=== PATIENT | male | born 1955 | race Caucasian/White ===

== ENCOUNTER → 2020-12-10 10:05 | Outpatient (CLI) | payer OTHER, SELFPAY ==
--- NOTE | ~2020-12-10 | XR_ITS ---
EXAMINATION: XR UGIAC wo kub EXAM DATE: 12/10/2020 10:51 INDICATION: Right upper quadrant pain. Patient reports having normal right upper quadrant ultrasound on Tuesday. TECHNIQUE: Standard single and double contrast barium upper GI examination was performed by radiolog ist Milo Youngblood M.D. Pulsed dose reduction fluoroscopy was used with fluoroscopic time of 0.7 minut es The DAP for this procedure was 2.6 Gycm2. A total of 107 images obtained for the exam. There i s no prior study for comparison. FINDINGS: Upper portion of esophagus demonstrates a small diverticulum projecting posteriorly, probab ly Zenker's diverticulum which did demonstrate rapid clearance. There is no esophageal stricture or m ass identified. There is small to moderate-sized gastroesophageal hiatal hernia which predisposes cornelius alvarenga to have reflux, but no reflux was demonstrated during this exam. The stomach has a normal appearance without evidence of mass lesion, ulceration or filling defect. T here is normal rugal fold pattern. The duodenum and duodenal sweep are normal in appearance. IMPRESSION: 1. Small to moderate sliding sized gastroesophageal hiatal hernia. 2. Small Zenker's diverticulum. 3. Unremarkable stomach, duodenal sweep. Reviewed, dictated and finalized at location B.
== END ==
DX: R10.11 Right upper quadrant pain (principal); K44.9 Diaphragmatic hernia without obstruction or gangrene; K22.5 Diverticulum of esophagus, acquired
CPT/HCPCS: 74246

== ENCOUNTER 2023-11-17 02:25 | Day surgery (SDC) | payer MEDICARE, SELFPAY ==
[2023-10-27 10:23] VITALS: BMI 30.5
[2023-11-17 06:20] VITALS: BP 147/95; PULSE 65; RESP 18; TEMP 36.1; O2SAT 100
[2023-11-17] MEDS: LACTATED RINGERS 1,000 ML 150 ML IV CONT (06:31)
--- NOTE | 2023-11-17 07:19 | WPDANESEPPF ---
Anes - Initial Pre Proc Eval Procedure: Operation Date: 11/17/23 07:30 Proposed Procedures p Esophagogastroduodenoscopy - Trav Eason MD Date/Time: 11/17/23 07:19 Surgeon: Trav Eason MD Pre Op Diagnosis: RUQ pain Patient Data Age: 67 Gender: M Height: 1.83 m Weight: 102.6 kg Last Vital Signs Temp 97 F L 11/17/23 06:20 Pulse 65 11/17/23 06:20 Resp 18 11/17/23 06:20 BP 147/95 H 11/17/23 06:20 Pulse Ox 100 11/17/23 06:20 O2 Del Method Room Air 11/17/23 06:20 Allergies Allergy/AdvReac Type Severity Reaction Status Date / Time No Known Allergies Allergy Verified 11/17/23 06:19 Home Medications Medication Instructions Recorded Confirmed Type No Home Medications 10/27/23 11/17/23 History Patient hx anesthesia problems: none Family hx anesthesia problems: none Results Review: All pre-operative results and documents have been reviewed as part of the pre-operative evaluation. COUNTS INCLUDE 234 BEDS AT THE [facility] Social History Social History Smoking status: Never smoker Alcohol intake: current Drinks per week: 4 Substance use: current Substance use type: other Other substance usage details: THC gummy Last use: 2x week Living arrangements: with family Spiritual care concerns: No Anes - Eval Final PreProcedure Day of Procedure 11/17/23 07:19 Patient weight: obese Heart: regular rate and rhythm Lungs: clear to auscultation Airway: Mallampati scale class II Neurological: alert and oriented Last oral intake: >/= 8 hours ASA classification: II Emergent: no Anesthetic plan: proceed Anesthesia type and monitoring: general GIVS and standard monitoring Results Review: All pre-operative results and documents have been reviewed as part of the pre-operative evaluation. Hx of palpitations, nilson when laying on his L side. Holter monitor pending. Pt reports he can walk 1-2 fos, no cp or sob. Informed Consent: The patient's anesthetic plan and its attendant risks and benefits were discussed with the patient/family/POA. Questions were solicited and answers provided to the satisfaction of the patient/family/POA.
--- NOTE | 2023-11-17 07:21 | WPDANESEPPF ---
Anes - Initial Pre Proc Eval Procedure: Operation Date: 11/17/23 07:30 Proposed Procedures p Esophagogastroduodenoscopy - Trav Eason MD Date/Time: 11/17/23 07:21 Surgeon: Trav Eason MD Pre Op Diagnosis: RUQ pain Patient Data Age: 67 Gender: M Height: 1.83 m Weight: 102.6 kg Last Vital Signs Temp 97 F L 11/17/23 06:20 Pulse 65 11/17/23 06:20 Resp 18 11/17/23 06:20 BP 147/95 H 11/17/23 06:20 Pulse Ox 100 11/17/23 06:20 O2 Del Method Room Air 11/17/23 06:20 Allergies Allergy/AdvReac Type Severity Reaction Status Date / Time No Known Allergies Allergy Verified 11/17/23 06:19 Home Medications Medication Instructions Recorded Confirmed Type No Home Medications 10/27/23 11/17/23 History Patient hx anesthesia problems: none Family hx anesthesia problems: none Results Review: All pre-operative results and documents have been reviewed as part of the pre-operative evaluation. [facility] Social History Social History Smoking status: Never smoker Alcohol intake: current Drinks per week: 4 Substance use: current Substance use type: other Other substance usage details: THC gummy Last use: 2x week Living arrangements: with family Spiritual care concerns: No Anes - Eval Final PreProcedure Day of Procedure 11/17/23 07:21 Patient weight: overweight Heart: regular rate and rhythm Lungs: clear to auscultation Airway: Mallampati scale class II and special considerations (L lower incisor is loose. ) Neurological: alert and oriented Last oral intake: >/= 8 hours ASA classification: II Emergent: no Anesthetic plan: proceed Anesthesia type and monitoring: general GIVS and standard monitoring Results Review: All pre-operative results and documents have been reviewed as part of the pre-operative evaluation. Pt reports hx of palpitations w laying on L side, holter monitor pending. Informed Consent: The patient's anesthetic plan and its attendant risks and benefits were discussed with the patient/family/POA. Questions were solicited and answers provided to the satisfaction of the patient/family/POA.
--- NOTE | 2023-11-17 07:34 | PM.HPGS ---
History of Present Illness History of Present Illness Consent: Risks, benefits, and alternatives have been discussed and questions answered. Patient agrees to proceed with procedure. Chief complaint: RUQ pain Narrative: Jaswinder Voss is a 67 year old male with abdominal discomfort after eating and lying down, feels like palpitations, just completed cadiology evaluation. Review of Systems Review of Systems: All systems reviewed & are unremarkable except as noted in HPI and below PMFSH Past Medical History Medical History (Updated 11/17/23 @ 07:45 by Trav Eason MD) Upper abdominal pain Social History Social History Smoking status: Never smoker Alcohol intake: current Drinks per week: 4 Substance use: current Substance use type: other Other substance usage details: THC gummy Last use: 2x week Living arrangements: with family Spiritual care concerns: No Meds Home Medications and Allergies Home Medications Medication Instructions Recorded Confirmed Type No Home Medications 10/27/23 11/17/23 History Allergies Allergy/AdvReac Type Severity Reaction Status Date / Time No Known Allergies Allergy Verified 11/17/23 06:19 Vital Signs Vital Signs - 24 hr 11/17/23 06:20 Temperature 97 F L Pulse Rate 65 Respiratory Rate 18 Blood Pressure 147/95 H Pulse Oximetry 100 Oxygen Delivery Room Air Exam Const: General: comfortable and no acute distress HENMT: Face/Nose/Sinus: Normal nares present Eyes: General: appearance normal, both eyes and all related structures Neck: Neck: no JVD Resp: Auscultation: clear to auscultation bilaterally Cardio: Rate: regular rate Rhythm: regular rhythm GI: Inspection: non-distended GI Palp: Yes Soft to palpation Skin: General skin exam: normal color Neuro: General: gait normal Speech: normal speech Extrem: General: normal to inspection Psych: Mental Status: mental status grossly normal Assessment and Plan Assessment and plan (1) Upper abdominal pain: Code(s): R10.10 - Upper abdominal pain, unspecified Status: Acute Assessment and Plan: egd with bx
[2023-11-17] MEDS: BENZOCAINE (*SP) 60 ML SPRAY CAN (HURRICAINE) 1 SPRAY MUCOUS MEM (07:35)
[2023-11-17 07:47] VITALS: BP 114/65; PULSE 66; RESP 18; O2SAT 99
[2023-11-17 07:57] VITALS: BP 128/68; PULSE 66; RESP 18; O2SAT 100
[2023-11-17 08:07] VITALS: BP 136/76; PULSE 66; RESP 18; O2SAT 100
== END 2023-11-17 08:17 | disposition home or self-care (01) ==
PROVIDERS: PCP Family Medicine; Visit Provider Internal Medicine Gastroenterology
PROC: 0DJ08ZZ Inspection of Upper Intestinal Tract, Via Natural or Artificial Opening Endoscopic (ICD-10-PCS; CPT 43235; principal; 2023-11-17 07:30)
DX: K22.2 Esophageal obstruction (principal); K44.9 Diaphragmatic hernia without obstruction or gangrene; K29.50 Unspecified chronic gastritis without bleeding; K20.90 Esophagitis, unspecified without bleeding; F12.90 Cannabis use, unspecified, uncomplicated; E66.9 Obesity, unspecified; Z68.30 Body mass index [BMI] 30.0-30.9, adult
CPT/HCPCS: 43239; 43249; 88305; C1726; J2003; J2704; J7120